=== PATIENT | female | born 1995 | race African-American/Black ===

== ENCOUNTER 2017-03-21 15:48 | Emergency (ER) | payer OTHER ==
[~2017-03-21] VITALS: Ht 152.4 cm; Wt 76.3 kg
[~2017-03-21 15:48] MED LIST: AMOX TR-K CLV1 EAC4 PO; FLONASE ALLERG9.9 ML BOTH NARES; FLUCONAZOLE150 MG PO; LODINE400 MG PO; MOTRIN IB200 MG PO; MOTRIN800 MG PO; OMEPRAZOLE20 MG PO; RELAFEN500 M1 PO; RISPERDAL3 MG PO
[2017-03-21] MEDS ORDERED: NAPROXEN500 MG PO (18:24)
[2017-03-21 18:41] VITALS: BP 124/67
== END 2017-03-21 18:44 | disposition home or self-care (01) ==
LOC: EME 15:48
DX: S93.402A Sprain of unspecified ligament of left ankle, initial encounter (principal); X50.9XXA Other and unspecified overexertion or strenuous movements or postures, initial encounter; Y93.01 Activity, walking, marching and hiking
CPT/HCPCS: 73610; 99281; 99283

== ENCOUNTER 2017-09-01 10:04 | Emergency (ER) | payer OTHER ==
[~2017-09-01] VITALS: Ht 152.4 cm; Wt 68.8 kg
[~2017-09-01 10:04] MED LIST changes: +NAPROXEN500 MG PO
[2017-09-01 10:12] VITALS: BP 96/80
== END 2017-09-01 14:26 | disposition home or self-care (01) ==
LOC: EME 10:04
DX: F32.9 Major depressive disorder, single episode, unspecified (principal); F20.9 Schizophrenia, unspecified; F17.200 Nicotine dependence, unspecified, uncomplicated; Z91.14 Patient's other noncompliance with medication regimen
CPT/HCPCS: 99281

== ENCOUNTER 2017-11-07 13:53 | Inpatient (IN) | payer OTHER ==
[~2017-11-07] VITALS: Ht 149.9 cm; Wt 64.7 kg
[2017-11-07 16:11] LABS: BASOPHIL (%) 0.2 % (0-1); EOSINOPHIL (%) 0.8 % (0-5); EOSINOPHIL COUNT 0.1 K/uL (0-0.3); HEMATOCRIT 39.5 % (36.0-46.0); HEMOGLOBIN 13.4 G/DL (11.9-15.5); IMMATURE GRANULOCYTE (%) 0.2 % (0.0-0.7); LYMPHOCYTE COUNT 2.1 K/uL (1.0-2.8); MCH 31.9 PG (29.0-34.0); MCHC 33.9 G/DL (30.0-36.0); MONOCYTE (%) 9.4 % (3-12); NEUTROPHIL (%) 69.4 % (45-76); NEUTROPHIL COUNT 7.4 K/uL (1.8-6.4); PLATELET COUNT 220 K/uL (156-360); RBC DIS.WIDTH-CV 13.5 % (11.8-14.6); RBC DIS.WIDTH-SD 45.8 % (39-53); WHITE BLOOD COUNT 10.6 K/uL (4.1-10.2)
[2017-11-07 16:18] LABS: ALBUMIN 4.2 g/dL (3.2-4.8); CHLORIDE 107 mEq/L (99-109); POTASSIUM 3.8 mEq/L (3.7-5.4); SODIUM 142 mEq/L (136-147)
[2017-11-07 16:20] LABS: GLUCOSE 78 mg/dL (70-99)
[2017-11-07 16:22] LABS: TOTAL BILIRUBIN 1.2 mg/dL (0.0-1.0)
[2017-11-07 16:23] LABS: SERUM ETHYL ALCOHOL < 10 mg/dL
[2017-11-07 16:24] LABS: ALKALINE PHOSPHATASE 83 IU/L (3-129); CREATININE 0.8 mg/dL (0.6-1.3); GFR ESTIMATE (CALCULATED) > 59 mL/min/
[2017-11-07 16:25] LABS: AST (GOT) 17 IU/L (2-34); UREA NITROGEN (BUN) 10 mg/dL (9-23)
[2017-11-07 16:27] LABS: ALT (GPT) 16 IU/L (3-49)
[2017-11-07 16:32] LABS: QUANTITATIVE HCG < 4.0 MIU/ML
[2017-11-07 19:24] LABS: AMPHETAMINE NEGATIVE (500 ng/mL); BARBITURATES NEGATIVE (200 ng/mL); BENZODIAZEPINES NEGATIVE (150 ng/mL); BUPRENORPHINE NEGATIVE (10 ng/mL); COCAINE NEGATIVE (150 ng/mL); METHADONE NEGATIVE (200 ng/mL); METHAMPHETAMINE NEGATIVE (500 ng/mL); OPIATES (MORPHINE) NEGATIVE (100 ng/mL); OXYCODONE NEGATIVE (100 ng/mL); PHENCYCLIDINE NEGATIVE (25 ng/mL); PROPOXYPHENE NEGATIVE (300 ng/mL); THC CANNABINOIDS PRESUMPTIVE POSITIVE (50 ng/mL); TRICYCLIC ANTIDEPRESSANTS NEGATIVE (300 ng/mL)
[2017-11-07 20:16] VITALS: BP 119/62
[2017-11-08 07:27] VITALS: BP 118/55
[2017-11-08 15:17] VITALS: BP 103/50
[2017-11-09 07:22] VITALS: BP 98/54
[2017-11-09 16:02] VITALS: BP 107/53
[2017-11-10 07:30] VITALS: BP 105/61
[2017-11-10 15:33] VITALS: BP 123/60
[2017-11-11 08:42] VITALS: BP 109/56
[2017-11-11 15:30] VITALS: BP 105/52
[2017-11-12 08:07] VITALS: BP 102/55
[2017-11-12] MEDS ORDERED: GEODON40 MG PO (08:58)
== END 2017-11-12 11:00 | disposition home or self-care (01) | DRG 885 ==
LOC: EME 13:53 → EDOF 17:47 → 1WEST 17:47 → ENRESERV 19:44 → 1WEST 20:04
PROVIDERS: Emergency Medicine
DX: F20.0 Paranoid schizophrenia (principal); R45.851 Suicidal ideations; F12.90 Cannabis use, unspecified, uncomplicated; F32.9 Major depressive disorder, single episode, unspecified; Z81.8 Family history of other mental and behavioral disorders; F17.200 Nicotine dependence, unspecified, uncomplicated; Z91.14 Patient's other noncompliance with medication regimen; Z78.1 Physical restraint status; Z91.19 Patient's noncompliance with other medical treatment and regimen; N64.3 Galactorrhea not associated with childbirth
CPT/HCPCS: 80053; 84702; 84999; 85025; 90837; 97150 GO; 97165 GO; 99281; 99285; G0480; J1630; J2060